=== PATIENT | female | born 1970 | race Two or more races ===

== ENCOUNTER → 2025-01-08 | Outpatient (CLI) | payer MEDICAID, SELFPAY ==
--- NOTE | 2025-01-08 15:45 | XR_ITS ---
Examination: MRI lumbar spine, without intravenous contrast. MRI lumbar spine, with intravenous contrast. Exam date and time: January 08, 2025, 1613 hours INDICATIONS: Lower back pain radiating down both hips 8 months Technique: Multiple axial, sagittal and coronal images of the lumbar spine have been obtained with the Siemens high-resolution 1.5 Yue MRI scanner. Images obtained included T2 weighted fat suppressed sagittal sections, TR 3500, TE 46, T2 weighted coronal fat suppressed images, TR 3050, TE 84, T2-weighted transverse fat suppressed images, TR 30-60, TE 63, proton density transverse images, TR 4720, TE 46, and T1 weighted coronal images, TR 560, TE 13. Axial, sagittal and coronal images are obtained post intravenous injection 13 cc gadolinium. Findings: Satisfactory alignment lumbar vertebral bodies No lumbar fracture. Mild disc narrowing L3-L4. Disc desiccation L3-L4, L5-S1 Post contrast images demonstrate no abnormal osseous epidural conus medullaris or cauda equina enhancement L5-S1 4.5 mm central lumbar disc bulge contiguous with the right S1 nerve root L4-L5 5 mm central lumbar disc bulge L3-L4 small foraminal disc bulges each 3 mm no ganglionic compression L2-L3 no disc protrusion L1-L2 no disc protrusion IMPRESSION: L5-S1 4.5 mm central lumbar disc bulge contiguous with the right S1 nerve root L4-L5 5 mm central lumbar disc bulge
== END | disposition home or self-care (01) ==
LOC: SMRI 15:29
DX: M51.370 Other intervertebral disc degeneration, lumbosacral region with discogenic back pain only (principal); M51.360 Other intervertebral disc degeneration, lumbar region with discogenic back pain only
CPT/HCPCS: 72158; A9577